=== PATIENT | female | born 1935 | race Caucasian/White ===

== ENCOUNTER 2018-06-17 11:16 | Outpatient (CLI) | payer OTHER ==
[2018-06-17] MEDS ORDERED: DIATR MEGLU/DIATRIZ SOD 30 ML SOLUTION PO ONE (12:05)
== END 2018-06-17 21:16 | disposition home or self-care (01) ==
LOC: SCT 11:16
PROVIDERS: ATTEND Internal Medicine
DX: N28.1 Cyst of kidney, acquired (principal); H02.402 Unspecified ptosis of left eyelid; K57.90 Diverticulosis of intestine, part unspecified, without perforation or abscess without bleeding; I70.90 Unspecified atherosclerosis
CPT/HCPCS: 70450; 74176; Q9964

== ENCOUNTER 2019-05-29 09:06 | Outpatient (CLI) | payer OTHER | END 2019-05-29 21:02 | disposition home or self-care (01) | LOC: SRD 09:06 | PROVIDERS: ATTEND Internal Medicine | DX: M47.816 Spondylosis without myelopathy or radiculopathy, lumbar region (principal); I70.90 Unspecified atherosclerosis; M25.80 Other specified joint disorders, unspecified joint; M54.30 Sciatica, unspecified side; Z98.890 Other specified postprocedural states | CPT/HCPCS: 72100-TC ==

== ENCOUNTER 2019-09-09 17:32 | Emergency (ER) | payer OTHER ==
[~2019-09-09] VITALS: Ht 157.5 cm; Wt 64.9 kg
[2019-09-09 17:45] VITALS: BP_SYST 146
--- NOTE | 2019-09-09 19:50 | NUR ---
Patient to [facility] for evaluation. Side rails up. Report given to TOBY Aguirre
--- NOTE | 2019-09-09 20:44 | NUR ---
PT A&OX4 C/O OF FALLING AT TARGET AND LANDED ON HER LEFT HAND AND KNEES. PT STATES SHE HIT HER FOREHEAD BUT DENIES LOSS OF CONSCIOUSNESS. PT HAS A BRUISE AND ABRASION ON UPPER LIP. PT LEFT WRIST IS SWOLLEN AND BRUISED. PT REPORTS SENSATION IN HER FINGERS, CAP REFILL LESS THAN 3 SECONDS. PT IS ABLE TO MOVE WRIST BUT IT CAUSES HER PAIN. PT RATES HER PAIN A 10 OUT OF 10.
--- NOTE | 2019-09-09 20:45 | NUR ---
ER at bedside examining patient.
--- NOTE | 2019-09-09 20:48 | NUR ---
PT IS ICING LEFT WRIST.
[2019-09-09] MEDS ORDERED: NAPROXEN 250 MG TABLET PO SCH (21:00)
--- NOTE | 2019-09-09 21:59 | NUR ---
IBuprofen 800mg po x1 given per
[2019-09-09 22:00] VITALS: BP_SYST 146
--- NOTE | 2019-09-09 22:00 | NUR ---
Patient given written and verbal discharge instructions and verbalizes understanding. ER MD discussed with patient the results and treatment provided. Patient in stable condition. ID arm band removed. No IV Rx of Naprosyn given. Patient educated on pain management and to follow up with PMD. Pain Scale 0/10. Opportunity for questions provided and answered. Medication side effect sheet provided
[2019-09-09] MEDS ORDERED: IBUPROFEN 800 MG TABLET ONE (22:07)
[2019-09-09] MEDS ORDERED: IBUPROFEN 800 MG TABLET PO ONE (22:30)
== END 2019-09-09 22:00 | disposition home or self-care (01) ==
LOC: SED 17:32
DX: S60.211A Contusion of right wrist, initial encounter (principal); S00.531A Contusion of lip, initial encounter; S09.90XA Unspecified injury of head, initial encounter; I10 Essential (primary) hypertension; Z85.3 Personal history of malignant neoplasm of breast; W01.0XXA Fall on same level from slipping, tripping and stumbling without subsequent striking against object, initial encounter; Y93.89 Activity, other specified; Y92.89 Other specified places as the place of occurrence of the external cause; Y99.8 Other external cause status
CPT/HCPCS: 70450-TC; 70486-TC; 72125-TC; 99285

== ENCOUNTER 2021-03-17 07:32 | Emergency (ER) | payer OTHER ==
[~2021-03-17] VITALS: Ht 157.5 cm; Wt 65.8 kg
[2021-03-17 07:35] VITALS: BP_SYST 137
--- NOTE | 2021-03-17 07:35 | NUR ---
BROUGHT IN BY [facility], PLACED IN BED #6 AND TRIAGED. REPORT GIVEN TO ALEXA
--- NOTE | 2021-03-17 08:14 | NUR ---
patient to ED at this time with complaints of n/v during the night. MD at bedside. will insert peripheral iv and medicate per md order. patient denies n/v at this time. will monitor and ensure safety and comfort.
[2021-03-17] MEDS: ONDANSETRON 4 MG ODT TAB PO ONE (08:22)
--- NOTE | 2021-03-17 09:34 | NUR ---
family at bedside to sit with patient. patient has complaints of "knawing" lower abdominal pain. She states her last BM was yesterday.
--- NOTE | 2021-03-17 10:15 | NUR ---
Daughter at bedside at this time with more history on patient. patient has had a bout of several uti's with symptoms. patient given urine cup or u/a to be dipped and sent to lap. patient unable to urinate. daughter very helpful with mother and will assist her to the bathroom to obtain urinalysis.
--- NOTE | 2021-03-17 10:22 | NUR ---
patient up to restroom at this time with patient.
[2021-03-17 10:29] LABS: BASOPHILS % (AUTO) 0.7 % (0.0-2.0); EOSINOPHILS % (AUTO) 0.8 % (0.0-4.0); HEMATOCRIT 38.7 % (36-48); HEMOGLOBIN 13.1 g/dL (12.0-16.0); LYMPHOCYTES # (AUTO) 0.8 K/uL (1.0-5.5); LYMPHOCYTES % (AUTO) 14.3 % (20.5-51.5); MEAN CORPUSCULAR HEMOGLOBIN 30 pg (27-31); MEAN CORPUSCULAR HGB CONC 34 % (32-36); MEAN CORPUSCULAR VOLUME 90 fL (79.0-98.0); MONOCYTES # (AUTO) 0.3 K/uL (0.0-1.0); MONOCYTES % (AUTO) 5.5 % (1.7-9.3); NEUTROPHILS # (AUTO) 4.3 K/uL (1.8-7.7); NEUTROPHILS % (AUTO) 78.7 % (40.0-70.0); PLATELET COUNT (AUTO) 132 K/uL (130-430); RED BLOOD CELL COUNT(AUTO) 4.33 MIL/uL (4.2-6.2); RED CELL DISTRIBUTION WIDTH 13.9 % (9.0-15.0); WHITE BLOOD COUNT (AUTO) 5.5 K/uL (4.8-10.8)
[2021-03-17 10:43] LABS: ALANINE AMINOTRANSFERASE 23 U/L (12-78); ALBUMIN 3.4 g/dL (3.4-4.8); AMYLASE 42 U/L (0-100); ANION GAP 8 (5-15); ASPARTATE AMINOTRANSFERASE 23 U/L (10-37); C-REACTIVE PROTEIN QUANT 0.8 mg/dL (0-0.5); CALCIUM 9.5 mg/dL (8.4-11.0); CHLORIDE 100 mmol/L (98-107); GLUCOSE 105 mg/dL (70-99); LACTATE DEHYDROGENASE 171 U/L (81-234); LIPASE 86 U/L (73-393); POTASSIUM 3.9 mmol/L (3.5-5.1); SODIUM SERUM 136 mmol/L (136-145); TOTAL BILIRUBIN 0.6 mg/dL (0.0-1.0); UREA NITROGEN, BLOOD 16 mg/dL (8-21)
[2021-03-17 11:06] LABS: CREATININE 1.22 mg/dL (0.55-1.30)
[2021-03-17 11:18] LABS: BILIRUBIN,URINE NEGATIVE (NEGATIVE); BLOOD, URINE NEGATIVE (NEGATIVE); CLARITY/URINE CLEAR (CLEAR); COLOR,URINE YELLOW (YELLOW); GLUCOSE,URINE NEGATIVE (NEGATIVE); KETONES,URINE NEGATIVE (NEGATIVE); LEUKOCYTE ESTERASE ,URINE NEGATIVE (NEGATIVE); NITRITE, URINE NEGATIVE (NEGATIVE); PROTEIN URINE NEGATIVE (NEGATIVE); UROBILINOGEN,URINE 0.2 (0.2-1.0)
--- NOTE | 2021-03-17 11:29 | NUR ---
Patient administered reglan 10mg ivp at this time for moderate nausea absent of vomiting. patient has complaints of lower back pain. patient repositioned with pillow behind back for comfort, iv fluids up and infusing at this time. will continue to monitor the patient.
[2021-03-17] MEDS: METOCLOPRAMIDE HCL 10 MG/2 ML VIAL IVP ONE (11:53)
[2021-03-17] MEDS: NACL 0.9% 1,000 ML IV ONE (11:53)
[2021-03-17] MEDS ORDERED: IBUP-1969 PO (12:11)
[2021-03-17] MEDS ORDERED: ONDA-8 TL (12:11)
--- NOTE | 2021-03-17 12:50 | NUR ---
patient discharged home at this time with nephew in stable condition, iv removed and iv catheter intact, vss, no pain.
[2021-03-17 12:52] VITALS: BP_SYST 163
== END 2021-03-17 12:52 | disposition home or self-care (01) ==
LOC: SED 07:32
DX: R11.10 Vomiting, unspecified (principal); R19.7 Diarrhea, unspecified; I10 Essential (primary) hypertension
CPT/HCPCS: 36415; 74176; 76376; 80053; 81003; 82150; 83605; 83615; 83690; 84484; 85025; 86140; 96361; 96374; 99284; J2765; J7030; Q0162

== ENCOUNTER 2021-05-13 05:20 | Day surgery (SDC) | payer OTHER, SELFPAY ==
[~2021-05-13] VITALS: Ht 157.5 cm; Wt 65.8 kg
[~2021-05-13 05:20] MED LIST: IBUP-1969 PO; ONDA-8 TL
[2021-05-13] MEDS ORDERED: SIMETHICONE 40 MG/0.6 ML ML ONE (07:26)
[2021-05-13] MEDS ORDERED: MIDAZOLAM HCL 5 MG/5 ML VIAL ONE (07:26)
[2021-05-13] MEDS ORDERED: fentaNYL CITRATE/PF 100 MCG/2 ML AMP ONE (07:26)
[2021-05-13 12:58] VITALS: BP_SYST 168
== END 2021-05-14 10:09 | disposition home or self-care (01) ==
LOC: SDS 05:20 → SMU 05:20 → SDS 05-14 10:09
PROVIDERS: ATTEND Internal Medicine Gastroenterology
DX: R19.5 Other fecal abnormalities (principal); D12.2 Benign neoplasm of ascending colon; K57.30 Diverticulosis of large intestine without perforation or abscess without bleeding; K64.9 Unspecified hemorrhoids; Z20.822 Contact with and (suspected) exposure to COVID-19; Z79.899 Other long term (current) drug therapy
CPT/HCPCS: 36415; 45385; 87426; 88305; 99152; 99153; G0378; J2250; J3010; U0003

== ENCOUNTER 2021-12-15 09:54 | Emergency (ER) | payer OTHER ==
[~2021-12-15] VITALS: Ht 157.5 cm; Wt 65.3 kg
[2021-12-15 09:55] VITALS: BP_SYST 149
[2021-12-15] MEDS ORDERED: METOCLOPRAMIDE HCL 10 MG/2 ML VIAL IVP ONE (11:00)
[2021-12-15] MEDS ORDERED: MECLIZINE HCL 25 MG TABLET (ANITVERT) PO ONE (11:00)
[2021-12-15] MEDS ORDERED: NACL 0.9% 1,000 ML IV ONE (11:00)
[2021-12-15 11:46] LABS: ANION GAP 4 (5-15); CALCIUM 10.5 mg/dL (8.4-11.0); CHLORIDE 105 mmol/L (98-107); CREATININE 1.38 mg/dL (0.55-1.30); GLUCOSE 77 mg/dL (70-99); POTASSIUM 3.8 mmol/L (3.5-5.1); UREA NITROGEN, BLOOD 16 mg/dL (8-21)
[2021-12-15 11:48] LABS: BASOPHILS # (AUTO) 0.1 K/uL (0.0-0.2); BASOPHILS % (AUTO) 1.6 % (0.0-2.0); EOSINOPHILS # (AUTO) 0.2 K/uL (0.0-0.4); EOSINOPHILS % (AUTO) 3.9 % (0.0-4.0); HEMATOCRIT 39.1 % (36-48); LYMPHOCYTES # (AUTO) 1.9 K/uL (1.0-5.5); LYMPHOCYTES % (AUTO) 38.3 % (20.5-51.5); MEAN CORPUSCULAR VOLUME 90 fL (79.0-98.0); MONOCYTES # (AUTO) 0.4 K/uL (0.0-1.0); MONOCYTES % (AUTO) 8.4 % (1.7-9.3); NEUTROPHILS # (AUTO) 2.4 K/uL (1.8-7.7); NEUTROPHILS % (AUTO) 47.8 % (40.0-70.0); PLATELET COUNT (AUTO) 152 K/uL (130-430); RED BLOOD CELL COUNT(AUTO) 4.37 MIL/uL (4.2-6.2); RED CELL DISTRIBUTION WIDTH 13.5 % (9.0-15.0)
[2021-12-15 11:54] LABS: ALANINE AMINOTRANSFERASE 23 U/L (12-78); ALBUMIN 3.4 g/dL (3.4-4.8); ASPARTATE AMINOTRANSFERASE 34 U/L (10-37); TOTAL BILIRUBIN 0.8 mg/dL (0.0-1.0)
[2021-12-15] MEDS ORDERED: MORPHINE 2 MG/ML INJ. SYRINGE IVP ONE (12:00)
[2021-12-15] MEDS ORDERED: MECL-225 PO (14:38)
[2021-12-15] MEDS ORDERED: METO-290 PO (14:38)
[2021-12-15 14:50] VITALS: BP_SYST 149
== END 2021-12-15 14:30 | disposition home or self-care (01) ==
LOC: SED 09:54
DX: R42 Dizziness and giddiness (principal); E86.0 Dehydration; R94.4 Abnormal results of kidney function studies; I10 Essential (primary) hypertension; Z79.899 Other long term (current) drug therapy
CPT/HCPCS: 99284; 96374; 96361; 96375; 80053; 85025; 84484; 36415; 93005; 81002; J8597; J2765; J2270; J7030

== ENCOUNTER 2023-03-01 17:57 | Emergency (ER) | payer OTHER ==
[~2023-03-01] VITALS: Ht 157.5 cm; Wt 71.7 kg
[~2023-03-01 17:57] MED LIST changes: +MECL-225 PO; +METO-290 PO
[2023-03-01 18:00] VITALS: BP_SYST 136; PULSE 77; RESP 19; TEMP 98.1; O2SAT 97
[2023-03-01] MEDS ORDERED: NABU-138 PO (19:22)
[2023-03-01 19:32] VITALS: BP_SYST 136; PULSE 77; RESP 19; TEMP 98.1; O2SAT 97
== END 2023-03-01 19:30 | disposition home or self-care (01) ==
LOC: SED 17:57
DX: M79.662 Pain in left lower leg (principal); I10 Essential (primary) hypertension; Z79.899 Other long term (current) drug therapy
CPT/HCPCS: 93971; 99284